=== PATIENT | female | born 1990 ===

== ENCOUNTER 2017-07-02 21:53 | Emergency (ER) | payer SELFPAY ==
[2017-07-02 22:09] VITALS: BP 115/71
[2017-07-02 22:53] LABS: Basophils # (Auto) 0.1 K/mm3 (0.0-0.1); Basophils % (Auto) 0.5 % (0.0-1.8); Eosinophils # (Auto) 0.4 K/mm3 (0.0-0.4); Eosinophils % (Auto) 4.4 % (0.0-4.3); Hematocrit 31.8 % (30.3-42.9); Hemoglobin 10.7 gm/dl (10.1-14.3); Lymphocytes # (Auto) 3.5 K/mm3 (1.2-5.4); Lymphocytes % (Auto) 36.2 % (13.4-35.0); Mean Corpuscular HGB Conc 34 % (30-34); Mean Corpuscular Hemoglobin 27 pg (28-32); Mean Corpuscular Volume 82 fl (79-97); Monocytes # (Auto) 0.8 K/mm3 (0.0-0.8); Monocytes % (Auto) 8.2 % (0.0-7.3); Platelet Count 304 K/mm3 (140-440); Red Blood Count 3.89 M/mm3 (3.65-5.03); Red Cell Distribution Width 15.3 % (13.2-15.2)
[2017-07-02 23:09] LABS: Alanine Aminotransferase 8 units/L (7-56); Albumin 3.8 g/dL (3.9-5); BUN/Creatinine Ratio 14; Blood Urea Nitrogen 13 mg/dL (7-17); Calcium 8.9 mg/dL (8.4-10.2); Hemolysis Index 3
[2017-07-02 23:55] LABS: Bilirubin,Urine NEG (Negative); Blood,Urine SM (Negative); Color,Urine Yellow (Yellow); Mucus,Urine 3+ /HPF
== END 2017-07-02 22:10 | disposition left against medical advice (07) ==
LOC: ED 21:53
DX: R10.9 Unspecified abdominal pain (principal); Z53.21 Procedure and treatment not carried out due to patient leaving prior to being seen by health care provider
CPT/HCPCS: 36415; 80053; 81001; 84703; 85025

== ENCOUNTER 2021-08-22 12:34 | Emergency (ER) | payer MEDICAID ==
[2021-08-22 14:32] VITALS: BP 104/62
[2021-08-22 15:38] LABS: Basophils # (Auto) 0.1 K/mm3 (0.0-0.1); Basophils % (Auto) 0.9 % (0.0-1.8); Eosinophils # (Auto) 0.2 K/mm3 (0.0-0.4); Eosinophils % (Auto) 3.4 % (0.0-4.3); Hemoglobin 13.2 gm/dl (10.1-14.3); Lymphocytes # (Auto) 2.7 K/mm3 (1.2-5.4); Lymphocytes % (Auto) 48.2 % (13.4-35.0); Mean Corpuscular HGB Conc 34 % (30-34); Mean Corpuscular Volume 92 fl (79-97); Monocytes # (Auto) 0.3 K/mm3 (0.0-0.8); Monocytes % (Auto) 5.9 % (0.0-7.3); Platelet Count 237 K/mm3 (140-440); Red Blood Count 4.22 M/mm3 (3.65-5.03); Red Cell Distribution Width 13.7 % (13.2-15.2)
[2021-08-22 15:57] LABS: Alanine Aminotransferase 22 units/L (7-56); Albumin 4.7 g/dL (3.9-5); Blood Urea Nitrogen 11 mg/dL (7-17); Calcium 9.7 mg/dL (8.4-10.2); Hemolysis Index 4
[2021-08-22 16:19] LABS: BUN/Creatinine Ratio 18
--- NOTE | 2021-08-22 16:45 | XRay Report ---
CHEST 2 VIEWS INDICATION / CLINICAL INFORMATION: Chest pain and shortness of breath for 3 days. COMPARISON: None available. FINDINGS: SUPPORT DEVICES: None. HEART / MEDIASTINUM: No significant abnormality. LUNGS / PLEURA: No significant pulmonary abnormality. No significant pleural effusion. No pneumothora x. ADDITIONAL FINDINGS: No significant additional findings. IMPRESSION: 1. No acute abnormality of the chest. Signer Name: Hieu Castillo MD Signed: 08/22/2021 4:40 PM Workstation Name: [id number]
--- NOTE | 2021-08-23 17:51 | Electrocardiograph Report ---
[facility] Test Date: 2021-08-22 Test Time: 14:36:39 Pat Name: JUSTIN MALHOTRA Department: Room: Gender: F [employer]: ER : 1990 Requested By: TALHA PUCKETT Order Number: [id number] Reading MD: Scooter Villar Measurements Intervals [place] Rate: 56 P: 43 [place]: 184 QRS: 68 QRSD: 79 T: 71 QT: 409 QTc: 387 Interpretive Statements Sinus bradycardia Atrial premature complexes ST elev, probable normal early repol pattern No previous ECG available for comparison Electronically Signed On 08-23-2021 17:50:54 EDT by Scooter Villar
== END 2021-08-22 19:20 | disposition left against medical advice (07) ==
LOC: ED 12:34
DX: R07.9 Chest pain, unspecified (principal); Z53.21 Procedure and treatment not carried out due to patient leaving prior to being seen by health care provider
CPT/HCPCS: 36415; 71046; 80053; 84484; 84702; 85025; 93005

== ENCOUNTER 2021-08-23 11:48 | Emergency (ER) | payer MEDICAID ==
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
[2021-08-23 13:36] VITALS: BP 102/61
== END 2021-08-23 13:36 | disposition home or self-care (01) ==
LOC: ED 11:48
DX: R07.89 Other chest pain (principal); F41.9 Anxiety disorder, unspecified; F17.200 Nicotine dependence, unspecified, uncomplicated; F10.20 Alcohol dependence, uncomplicated
CPT/HCPCS: 99282